=== PATIENT | male | born 1960 | race Caucasian/White ===

== ENCOUNTER → 2017-08-20 | Outpatient (CLI) | payer BC ==
[~2017-08-20] MED LIST: OMNIPAQUE 350 MG/ML, 150 ML BOTTLE ONE
== END ==
LOC: CFH 11:43
PROVIDERS: ATTEND Internal Medicine Cardiovascular Disease
DX: I48.91 Unspecified atrial fibrillation (principal)
CPT/HCPCS: 71046; 75572; Q9967

== ENCOUNTER 2017-08-23 06:33 | Observation (INO) | payer BC ==
[~2017-08-23] VITALS: Ht 182.9 cm; Wt 85.8 kg
[2017-08-23] MEDS ORDERED: SODIUM CHLORIDE 0.9% 1,000 ML IV SCH ×2 (06:40→07:00)
[2017-08-23 06:57] VITALS: BP 155/89
[2017-08-23] MEDS ORDERED: ZOLP-413 PO (07:04)
[2017-08-23] MEDS ORDERED: ASPI-650 PO (07:04)
[2017-08-23] MEDS ORDERED: ATOR10TA PO (07:04)
[2017-08-23] MEDS ORDERED: PROTAMINE SULFATE 10 MG/ML, 5ML ONE (07:44)
[2017-08-23] MEDS ORDERED: LIDOCAINE 2%, 20ML ONE (07:45)
[2017-08-23] MEDS ORDERED: HEPARIN 1,000 UNITS/ML, 10ML ONE (07:45)
[2017-08-23] MEDS ORDERED: FENTANYL PF 250 MCG/5ML ONE (07:46)
[2017-08-23] MEDS ORDERED: MIDAZOLAM 1 MG/ML, 2ML ONE (07:46)
[2017-08-23] MEDS ORDERED: DEXAMETHASONE 4 MG/ML, 1ML ONE (08:01)
[2017-08-23] MEDS ORDERED: ROCURONIUM 10 MG/ML,10ML ONE (08:01)
[2017-08-23] MEDS ORDERED: PROPOFOL 10 MG/ML, 20ML ONE (08:01)
[2017-08-23] MEDS ORDERED: SUCCINYLCHOLINE 20 MG/ML, 10ML ONE (08:01)
[2017-08-23] MEDS ORDERED: ONDANSETRON 2MG/ML, 2ML ONE (08:01)
[2017-08-23] MEDS ORDERED: ZOLPIDEM 5MG TABLET PO PRN (11:00)
[2017-08-23] MEDS ORDERED: MIDAZOLAM 1 MG/ML, 2ML IV PRN (11:30)
[2017-08-23] MEDS ORDERED: ONDANSETRON 2MG/ML, 2ML IVPush PRN (11:30)
[2017-08-23] MEDS ORDERED: FENTANYL PF 100 MCG/2ML IV PRN (11:30)
[2017-08-23] MEDS ORDERED: MEPERIDINE/PF 25MG/0.5ML IVPush PRN (11:30)
[2017-08-23] MEDS ORDERED: HYDROmorphone 1 MG/ML, 1ML IV PRN (11:30)
[2017-08-23] MEDS ORDERED: OXYcodone 5 MG/5 ML ORAL.SOL UDC PO PRN (11:30)
[2017-08-23] MEDS ORDERED: PROMETHAZINE 25 MG/ML, 1ML IV PRN (11:30)
[2017-08-23] MEDS ORDERED: ACETAMINOPHEN 325 MG TABLET PO PRN (11:30)
[2017-08-23 12:44] VITALS: BP 136/81
[2017-08-23] MEDS: APIXABAN 5 MG TABLET PO SCH ×2 (12:55→19:48)
[2017-08-23] MEDS ORDERED: OXYcodone IR 5MG TABLET ONE (13:04)
[2017-08-23] MEDS: ACETAMINOPHEN 325 MG TABLET PO PRN (13:10)
[2017-08-23 14:08] VITALS: BP 120/77
[2017-08-23] MEDS ORDERED: LORazepam 1MG TABLET ONE (14:52)
[2017-08-23 20:32] VITALS: BP 122/72
[2017-08-23] MEDS ORDERED: ZOLPIDEM 5MG TABLET PO SCH (21:00)
[2017-08-23] MEDS ORDERED: ATORVASTATIN 10 MG TABLET PO SCH (21:00)
[2017-08-24] VITALS (9 sets, daily range): BP systolic 70–143; BP diastolic 34–87
[2017-08-24] MEDS ORDERED: NITROGLYCERIN 0.4 MG/SPRAY SL PRN (03:00)
[2017-08-24] MEDS ORDERED: NITROGLYCERIN 0.4 MG BOTTLE (25 TABS) SL PRN (03:00)
[2017-08-24] MEDS ORDERED: KETOROLAC 30 MG/1 ML IVPush SCH ×2 (03:30→12:00)
[2017-08-24] MEDS ORDERED: SODIUM CHLORIDE 0.9%, 250ML IVBOLUS ONE (03:30)
[2017-08-24] MEDS: SODIUM CHLORIDE 0.9% 1,000 ML IV SCH ×2 (03:53→11:16)
[2017-08-24] MEDS: APIXABAN 5 MG TABLET PO SCH (08:34)
[2017-08-24] MEDS: ACETAMINOPHEN 325 MG TABLET PO PRN (08:35)
[2017-08-24] MEDS ORDERED: APIX5TAB PO (11:16)
== END 2017-08-24 13:35 | disposition home or self-care (01) ==
LOC: CACL 06:33 → ORIP 10:55 → 5SO 12:35
PROVIDERS: ADMIT Internal Medicine Cardiovascular Disease; ATTEND Internal Medicine Cardiovascular Disease
DX: I48.0 Paroxysmal atrial fibrillation (principal); E78.5 Hyperlipidemia, unspecified; I48.92 Unspecified atrial flutter; Z79.899 Other long term (current) drug therapy
CPT/HCPCS: 36415; 71045; 85014; 85018; 85347; 93005; 93306; 93312; 93321; 93325; 93613; 93621; 93656; 96374; 96376; C1730; C1731; C1732; C1759; C1766; C1893; C1894; G0378; J0330; J1100; J1644; J1885; J2250; J2405; J2704; J2720; J3010; J3490; J7030; J7050